=== PATIENT | female | born 1985 | race Two or more races ===

== ENCOUNTER 2017-04-03 09:42 | Emergency (ER) | payer OTHER ==
[2017-04-03] MEDS ORDERED: NS 1,000 ML IV ONE (09:58)
[2017-04-03 09:59] VITALS: RESP 16
[2017-04-03 10:15] LABS: % IMMATURE GRANULYOCYTES 0.3 % (0.0-1.1); ABSOLUTE IMMATURE GRANULOCYTES 0.02 10^3/uL (0.00-0.10); ADD DIFF? NO; ADD MORPH? NO; ADD SCAN? NO; ATYPICAL LYMPHOCYTE FLAG 10 (0-99); FRAGMENT RBC FLAG 0 (0-99); HEMATOCRIT 42.5 % (38.0-47.0); HEMOGLOBIN 14.9 g/dL (12.6-16.3); LEFT SHIFT FLG 0 (0-99); LIPEMIA HEMOLYSIS FLAG 90 (0-99); MEAN CELL HEMOGLOBIN 31.4 pg (27.9-34.1); MEAN CELL HEMOGLOBIN CONCENTR. 35.1 g/dL (32.4-36.7); MEAN CELL VOLUME 89.5 fL (81.5-99.8); MEAN PLATELET VOLUME 8.9 fL (8.7-11.7); PLATELET CLUMPS FLAG 0 (0-99); PLATELET COUNT 383 10^3/uL (150-400); RED BLOOD CELL COUNT 4.75 10^6/uL (4.18-5.33); RED CELL DISTRIBUTION WIDTH 12.4 % (11.5-15.2)
--- NOTE | 2017-04-03 10:42 | EDPHY ---
H & P Time Seen by Provider: 04/03/17 09:58 HPI/ROS: HPI Vaginal bleeding. 31-year-old female by private vehicle. . She reports vaginal bleeding ongoing for 1 week. She reports several days ago that she thinks she passed a clot. She reports the vaginal bleeding has decreased over the last 24-48 hours. She reports she is not due to have her menstrual. For another 2 weeks. She is not sure she is . She describes having some lower abdominal cramping associated with this bleeding. She has been on Depo-Provera for the last 3 months. No fever. No urinary complaints. No back pain. ROS: Constitutional: No fever, no chills. No weakness. Respiratory: No cough. No shortness of breath. Cardiac: No chest pain, no palpitations. Gastrointestinal: No abdominal pain, no vomiting, no diarrhea. Genitourinary: No hematuria. No dysuria or increased frequency with urination. As above. Musculoskeletal: No back pain. No neck pain. No myalgias or arthralgias. Skin: No rashes. Neurological: No headache. No focal weakness or altered sensation. Past medical history: She denies any significant past medical history. [facility]. Social history: Here by herself. No alcohol. Physical Exam: General Appearance: Alert, no distress. This patient is responding to questions appropriately and in full sentences. This patient appears well- hydrated and well-nourished. Eyes: Pupils equal and round no pallor or injection. No lid edema, erythema or injection. Respiratory: There are no retractions, lungs are clear to auscultation with good air movement bilaterally. Cardiovascular: Regular rate and rhythm. No murmur. Gastrointestinal: Abdomen is soft and nontender on palpation across the lower abdomen, no masses, bowel sounds normal. No focal tenderness at McBurney's point. No Soto sign. Neurological: Motor sensory function is grossly intact. Cranial nerves are normal. Gait is normal. Skin: Warm and dry, no rashes. Musculoskeletal: No CVA tenderness bilaterally. Extremities are symmetrical. All joints range without pain or impingement. Psychiatric: No agitation. No depression. Database: EKG: Imaging: Pelvic ultrasound: Procedures: Emergency department course: Vital signs reviewed. She is mildly tachycardic. IV was placed. She was started on IV normal saline with 1 L to be given over 1 hour. Pelvic ultrasound ordered. Appropriate blood work sent. 11:10 a.m., patient re-evaluated. Resting comfortably at this time. Vital signs reviewed and are normal. Tachycardia has resolved. Results of her blood work were discussed with her. We are awaiting results of her ultrasound. 11:35 a.m., patient re-evaluated, resting comfortably at this time. Repeat abdominal exam she is soft, nontender nondistended. No vaginal bleeding at this time. Results of ultrasound discussed with her and her . She feels comfortable and I feel she is safe for discharge. She is to follow up with her primary care physician for re-evaluation and further management of her dysfunctional uterine bleeding on Tuesday or Tuesday. She is in agreement with this plan. Return to emergency department precautions discussed. All of her questions were answered. She was discharged in good condition. Differential Diagnosis: The differential diagnosis on this patient includes but is not limited to dysfunctional uterine bleeding. Ectopic , threatened miscarriage, completed miscarriage unlikely. This represents a partial list of diagnoses considered. These considerations are based on history, physical exam, past history, reassessment and diagnostic testing. Smoking Status: Never smoked Constitutional: Initial Vital Signs Heart Rate 108 H 04/03/17 09:56 Respiratory Rate 16 04/03/17 09:56 Blood Pressure 126/99 H 04/03/17 09:56 O2 Sat (%) 96 04/03/17 09:56 O2 Delivery Mode Room Air Allergies/Adverse Reactions: No Known Allergies Allergy (Verified 04/03/17 09:55) Home Medications: Medication Instructions Recorded Depo-Provera 07/15/15 Omeprazole Magnesium [Prilosec Otc] 20 mg PO DAILY #30 tablet. 07/15/15 Medical Decision Making - Data Points Laboratory Results: Laboratory Results 04/03/17 10:10 04/03/17 04/03/17 10:10 10:10 WBC 6.85 10^3/uL 10^3/uL (3.80-9.50) RBC 4.75 10^6/uL 10^6/uL (4.18-5.33) Hgb 14.9 g/dL g/dL (12.6-16.3) Hct 42.5 % % (38.0-47.0) MCV 89.5 fL fL (81.5-99.8) MCH 31.4 pg pg (27.9-34.1) MCHC 35.1 g/dL g/dL (32.4-36.7) RDW 12.4 % % (11.5-15.2) Plt Count 383 10^3/uL 10^3/uL (150-400) MPV 8.9 fL fL (8.7-11.7) Neut % (Auto) 58.6 % % (39.3-74.2) Lymph % (Auto) 35.3 % % (15.0-45.0) [place] % (Auto) 4.7 % % (4.5-13.0) Eos % (Auto) 0.7 % % (0.6-7.6) Baso % (Auto) 0.4 % % (0.3-1.7) Nucleat RBC Rel Count 0.0 % % (0.0-0.2) Absolute Neuts (auto) 4.01 10^3/uL 10^3/uL (1.70-6.50) Absolute Lymphs (auto) 2.42 10^3/uL 10^3/uL (1.00-3.00) Absolute Monos (auto) 0.32 10^3/uL 10^3/uL (0.30-0.80) Absolute Eos (auto) 0.05 10^3/uL 10^3/uL (0.03-0.40) Absolute Basos (auto) 0.03 10^3/uL 10^3/uL (0.02-0.10) Absolute Nucleated RBC 0.00 10^3/uL 10^3/uL (0-0.01) Immature Gran % 0.3 % % (0.0-1.1) Immature Gran # 0.02 10^3/uL 10^3/uL (0.00-0.10) Beta HCG, Qual NEGATIVE Medications Given: Discontinued Medications Sodium Chloride (Ns) 1,000 mls @ 0 mls/hr IV ONCE ONE; Wide Open PRN Reason: Protocol Stop: 04/03/17 09:59 Last Admin: 04/03/17 10:10 Dose: 1,000 mls Departure - Departure Disposition: Home, Routine, Self-Care Clinical Impression: Dysfunctional uterine bleeding Condition: Good Instructions: Dysfunctional Uterine Bleeding (ED) Additional Instructions: Read and follow provided instructions. Follow-up with your primary care physician as discussed in 1-2 days for re- evaluation. Return to the emergency department for worsening bleeding, fever, lightheadedness or other serious concerns. Referrals: MOSHE SLAUGHTER,. [Primary Care Provider] - As per Instructions
[2017-04-03 11:30] VITALS: BP 123/81; PULSE 92; O2SAT 98
== END 2017-04-03 11:31 | disposition home or self-care (01) ==
LOC: CED 09:42
DX: N93.8 Other specified abnormal uterine and vaginal bleeding (principal)
CPT/HCPCS: 76856-PO; 84703-PO; 85025-PO

== ENCOUNTER 2018-08-03 09:09 | Emergency (ER) | payer OTHER ==
[2018-08-03] MEDS ORDERED: IBUPROFEN 600 MG TAB PO ONE (09:31)
--- NOTE | 2018-08-03 09:35 | EDPHY ---
H & P Stated Complaint: rt buttock and calf pain started on Tuesday Time Seen by Provider: 08/03/18 09:27 HPI/ROS: CHIEF COMPLAINT: Gluteal pain HISTORY OF PRESENT ILLNESS: The patient is a 33-year-old female who comes to the emergency department complaining of right gluteal pain that radiates down to her lateral thigh. She states that it began on Tuesday when she was standing up from a chair. It is been stable since that time. It is not worsened. No weakness or numbness. She is able to ambulate but weight-bearing tends to exacerbate the pain. She denies low back pain. No fevers. No trauma. She has not taken any medications. Severity: Moderate Modifying factors: Worsened with weight-bearing REVIEW OF SYSTEMS: Constitutional: denies: chills, fever, recent illness, recent injury EENTM: denies: blurred vision, double vision, nose congestion Respiratory: denies: cough, shortness of breath Cardiac: denies: chest pain, irregular heart rate, lightheadedness, palpitations Gastrointestinal/Abdominal: denies: abdominal pain, diarrhea, nausea, vomiting, blood streaked stools Genitourinary: denies: dysuria, frequency, hematuria, pain Musculoskeletal: See HPI Skin: denies: lesions, rash, jaundice, bruising Neurological: denies: headache, numbness, paresthesia, tingling, dizziness, weakness Hematologic/Lymphatic: denies: blood clots, easy bleeding, easy bruising Immunologic/allergic: denies: HIV/AIDS, transplant 10 systems reviewed and negative except as noted EXAM: GENERAL: Well-appearing, well-nourished and in no acute distress. HEAD: Atraumatic, normocephalic. EYES: Pupils equal round and reactive to light, extraocular movements intact, sclera anicteric, conjunctiva are normal. ENT: TMs normal, nares patent, oropharynx clear without exudates. Moist mucous membranes. NECK: Normal range of motion, supple without lymphadenopathy or JVD. LUNGS: Breath sounds clear to auscultation bilaterally and equal. No wheezes rales or rhonchi. HEART: Regular rate and rhythm without murmurs, rubs or gallops. ABDOMEN: Soft, nontender, normoactive bowel sounds. No guarding, no rebound. No masses appreciated. BACK: No CVA tenderness, no spinal tenderness, step-offs or deformities EXTREMITIES: Pain with weight-bearing to right gluteus radiating down lateral thigh. Normal range of motion, no pitting or edema. No clubbing or cyanosis. Able to stand on Tippy toes and balance. NEUROLOGICAL: Cranial nerves II through XII grossly intact. Normal speech, normal gait. 5/5 strength, normal movement in all extremities, normal sensation , normal reflexes PSYCH: Normal mood, normal affect. SKIN: Warm, dry, normal turgor, no visible rashes or lesions. Source: Patient Exam Limitations: No limitations - Personal History LMP (Females 10-55): 22-28 Days Ago - Medical/Surgical History Hx Asthma: No Hx Chronic Respiratory Disease: No Hx Diabetes: No Hx Cardiac Disease: No Hx Renal Disease: No Hx Cirrhosis: No Hx Alcoholism: No Hx HIV/AIDS: No Hx Splenectomy or Spleen Trauma: No Other PMH: denies - Family History Significant Family History: No pertinent family hx - Social History Smoking Status: Never smoked Alcohol Use: Sober Drug Use: None Constitutional: Initial Vital Signs Temperature (C) 37.0 C 08/03/18 09:19 Heart Rate 79 08/03/18 09:19 Respiratory Rate 18 08/03/18 09:19 Blood Pressure 108/76 08/03/18 09:19 O2 Sat (%) 93 08/03/18 09:19 O2 Delivery Mode Room Air Allergies/Adverse Reactions: No Known Allergies Allergy (Verified 08/03/18 09:18) Home Medications: Medication Instructions Recorded Ibuprofen 600 mg PO TID PRN #30 tablet 08/03/18 Medical Decision Making ED Course/Re-evaluation: The patient has pain in her gluteus radiating down her lateral thigh. This is consistent with SI joint pain. She does not have low back pain. She does not describe weakness or numbness. She does not have symptoms consistent with cauda equina or spinal cord injury. No bowel or bladder abnormalities. No weakness. No immunosuppression IV drug abuse. She has not had a fever. She has not yet tried any medications. I will have her try anti-inflammatories such as ibuprofen and follow up with us or with her clinic in the next 3-4 days to assess improvement. We also discussed indications for returning to the emergency department sooner. Differential Diagnosis: Partial list of the Differential diagnosis considered include but were not limited to; SI joint pain, radiculopathy, muscle strain and although unlikely based on the history and physical exam, I also considered cauda equina, infection, avascular necrosis, abscess, tumor, ovarian cyst, kidney stone, hernia, , UTI. I discussed these differential diagnoses and the plan with the patient as well as the usual and expected course. The patient understands that the diagnosis is provisional and that in medicine we are not always correct and that further workup is often warranted. Usual and customary warnings were given. All of the patient's questions were answered. The patient was instructed to return to the emergency department should the symptoms at all worsen or return, otherwise to followup with the physician as we discussed. - Data Points Medications Given: Discontinued Medications Ibuprofen (Motrin) 600 mg PO EDNOW ONE Stop: 08/03/18 09:32 Last Admin: 08/03/18 09:48 Dose: 600 mg Departure - Departure Disposition: Home, Routine, Self-Care Clinical Impression: Disorder of SI (sacroiliac) joint Condition: Fair Instructions: Ibuprofen (By mouth), Acute Low Back Pain (ED) Referrals: MOSHE SLAUGHTER,. [Clinic] - As per Instructions Prescriptions: Ibuprofen 600 mg PO TID PRN #30 tablet PRN Reason: Pain, Moderate
[2018-08-03 09:41] VITALS: BP 108/76
== END 2018-08-03 10:10 | disposition home or self-care (01) ==
LOC: CED 09:09
DX: M53.3 Sacrococcygeal disorders, not elsewhere classified (principal)